=== PATIENT | female | born 1935 | race Hispanic/Latino ===

== ENCOUNTER 2017-02-12 18:58 | Inpatient (IN) | payer MEDICARE, OTHER ==
[~2017-02-12 18:58] MED LIST: ISOVUE-370 76%-LOCM 1 ML ONE
[2017-02-12 22:20] LABS: #Lymphocytes 0.9 thou/uL (1.20-3.40); #Monocytes 0.9 thou/uL (0.11-0.59); #Neutrophils 11.4 thou/uL (1.40-6.50); %Eosinophils 0.1 % (0.0-10.0); %Lymphocytes 6.9 % (21.0-51.0); Hematocrit 30.6 % (36.0-47.0); Mean Platelet Volume 7.7 fL (7.4-10.4); Red Blood Cell (RBC) Count 3.37 mill/uL (4.20-5.40); White Blood Cell (WBC) Count 13.2 thou/uL (4.8-10.8)
[2017-02-12 22:36] LABS: ALT (SGPT) Less than 7 U/L (8-55); AST (SGOT) 13 U/L (5-34); Alkaline Phosphatase 110 U/L (40-150); Anion Gap 16 mmol/L (10-20); BUN (Urea Nitrogen) 16 mg/dL (9.8-20.1); Bilirubin, Total 0.5 mg/dL (0.2-1.2); Calc. Creatinine Clearance 0 mL/min (70-130); Calcium 8.9 mg/dL (7.8-10.44); Carbon Dioxide 23 mmol/L (23-31); Chloride 107 mmol/L (98-107); Estimated GFR-MDRD 30; Globulin 2.8 g/dL (2.4-3.5); Protein, Total 6.6 g/dL (6.0-8.3)
--- NOTE | 2017-02-12 23:14 | CT ---
NONCONTRAST CT OF THE BRAIN: 02/12/17 INDICATION: Right sided facial swelling and head pain. COMPARISON: None. FINDINGS: There is mild generalized cerebral and cerebellar atrophy. There is severe chronic small vessel whit e matter ischemic change. There are remote lacunar infarcts involving the basal ganglia bilaterally. There is remote lacunar infarct involving the left cerebellar hemisphere. Septum pellucidum and thi rd ventricle are midline. There is mucosal thickening with sinus wall sclerosis consistent with sql developer miles sphenoid sinusitis. The remaining paranasal sinuses are clear. The skull is intact. IMPRESSION: No acute intracranial abnormality. POS: NASRIN
--- NOTE | 2017-02-13 00:18 | CT ---
CT OF THE FACE WITH IV CONTRAST: 02/12/17 INDICATION: Right sided facial swelling. FINDINGS: There is soft tissue swelling surrounding the right periorbital region. The [place] lenses were in pl bambi. The post septal orbital fat is preserved. No drainable fluid collection is evident. The mastica tor space bilaterally appear within normal limits. The parotids are normal appearing. Submandibular glands are normal appearing. No pathologically enlarged lymph nodes are evident. The visualized intr acranial contents are unremarkable appearing. There is chronic sinusitis changes involving the right sphenoid sinus. 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 IMPRESSION: No drainable fluid collection. Mild soft tissue swelling surrounding the right periorbital region ma y reflect a mild cellulits. POS: ERON
[2017-02-13] MEDS ORDERED: Hydrocortisone Sod Succ/PF 1,000 MG in Sodium Chloride 0.9% 250 ML 250 ML IVPB SCH (01:45)
[2017-02-13] MEDS ORDERED: HYDROcodone/Acetaminophen 5/325 mg Tablet PO PRN (02:51)
[2017-02-13] MEDS ORDERED: Acetaminophen 325 MG TAB PO PRN (02:51)
[2017-02-13] MEDS ORDERED: Dextrose 50% Abboject 50 ML SYRINGE SLOW IVP PRN (02:53)
[2017-02-13] MEDS ORDERED: Dextrose 5% in Water 1,000 ML IV PRN (02:53)
[2017-02-13] MEDS: Sodium Chloride 0.9% 1,000 ML IV SCH ×2 (04:23→18:23)
[2017-02-13 05:09] VITALS: BMI 32.3
[2017-02-13] MEDS: Ondansetron HCl/PF 4 MG/2 ML Vial IVP PRN ×2 (05:33→19:44)
[2017-02-13 05:53] LABS: #Eosinphils 0.1 thou/uL (0.0-0.7); #Lymphocytes 0.6 thou/uL (1.20-3.40); #Monocytes 0.5 thou/uL (0.11-0.59); #Neutrophils 10.6 thou/uL (1.40-6.50); %Lymphocytes 5.4 % (21.0-51.0); %Monocytes 4.3 % (0.0-10.0); Hematocrit 31.2 % (36.0-47.0); Mean Platelet Volume 9.4 fL (7.4-10.4); Red Blood Cell (RBC) Count 3.36 mill/uL (4.20-5.40); White Blood Cell (WBC) Count 11.8 thou/uL (4.8-10.8)
[2017-02-13 06:13] LABS: Anion Gap 20 mmol/L (10-20); BUN (Urea Nitrogen) 16 mg/dL (9.8-20.1); Calc. Creatinine Clearance 35 mL/min (70-130); Calcium 8.6 mg/dL (7.8-10.44); Carbon Dioxide 15 mmol/L (23-31); Chloride 109 mmol/L (98-107); Estimated GFR-MDRD 37
--- NOTE | 2017-02-13 07:45 | HP ---
DATE OF ADMISSION: 02/13/2017 CHIEF COMPLAINT: Right temporal region headache. HISTORY OF PRESENT ILLNESS: Patient is an 81-year-old female with past medical history of diabetes mellitus type 2, hypertension, hypothyroidism, hyperlipidemia, now came to the hospital because of right temporal headache. Patient started having headache on the right temporal region, constant 10/10. Denies any blurry vision, denies any vision loss. Denies any nausea, denies any vomiting. Denies any weakness. Denies any chest pain. Pain has started this evening. Denies any dizziness. Denies any syncope. Pain worsened, so she came to the ER. PAST MEDICAL HISTORY: As per HPI. PAST SURGICAL HISTORY: Hysterectomy. SOCIAL HISTORY: Denies smoking, denies alcohol, denies any drugs. MEDICATIONS: Reviewed. FAMILY HISTORY: Denies any heart problems. REVIEW OF SYSTEMS: Constitutional: Denies any fever, denies any chills. Eyes : Denies any vision problems. Nose: Denies any rhinorrhea. Ears: Denies any hearing loss. Neck: Denies any neck pain. Cardiovascular: Denies any chest pains or palpitations. Respiratory: Denies any cough, denies sputum production. Gastrointestinal: Denies nausea, vomiting. Genitourinary: Denies dysuria. Integumentary: Denies any rash. Cranial nerve system: Positive for right temporal region headache. Musculoskeletal: Denies any joint deformities. Physical exam: Vitals stable General: Awake, alert, oriented HEENT: Anterior nares patent, pupils reactive to light Neck: No jvd, good range of motion CVS: S1 S2 present, rrr, no murmur, no rubs, no gallop RS: No wheezing, no rhonchi, no accessory muscle usage seen GI: Soft, nttp, no guarding, no rebound tenderness DIVE SUPERVISOR: Alert and oriented, follows commands, strength intact Psych: Mood calm Integumentary: No obvious rash LABORATORY DATA: At the time of H and P performed, white count 13.2, hemoglobin 10.1, platelets count 209. ESR 130. BMP showed sodium 142, potassium 3.5, chloride 107, CO2 of 23, BUN of 16, creatinine 1.64. CRP 4.27, troponin 0.010. ASSESSMENT AND PLAN: The patient is an 81-year-old female. 1. Rule out temporal arteritis. ED nurse practitioner spoke to the ENT for possible biopsy. At this time, we will go ahead and admit the patient to the hospital for close monitoring. We will consult Neurology to evaluate the patient also. We will keep patient n.p.o. for now. ED Nurse Practitioner ordered gram of Solu-Medrol. Patient does not have any vision loss and I will start patient on prednisone 60 mg daily and we will let Neurology see the patient in the morning and make further plans. I did try to reach Neurology, not able to reach at this time. We will call and notify in the morning. 2. Diabetes mellitus, type 2. Monitor blood sugars. We will do insulin sliding scale. 3. Hypertension. Monitor blood pressure. Continue blood pressure medications. 4. Hypothyrodism. Continue home medication. The case was discussed in detail with the patient. VALENTÍN
[2017-02-13] MEDS: predniSONE 20 MG TAB PO SCH (09:22)
[2017-02-13 10:17] LABS: Hemoglobin A1c 5.6 % (4.0-6.0)
[2017-02-13] MEDS ORDERED: METHYLPREDNISOLONE SOD SUCC IVP SCH (12:00)
[2017-02-13] MEDS ORDERED: SODIUM CHLORIDE 0.9% IVP SCH (12:00)
--- NOTE | 2017-02-13 13:22 | PDOC.EVN ---
Event Note - Event Note Event Note: Patient seen and examined, family at bedside, at this point in time pending biopsy of temporal artery, states her headache and symptoms have improved a bit but not completely disappeared. No new issues or complaints, continue current plan of care. Case and plan d/w patient and family at length, they understand and agree with the plan
[2017-02-13] MEDS: Bicitra 30 ML UDCUP PO SCH ×3 (13:31→22:31)
--- NOTE | 2017-02-13 15:22 | CON ---
DATE OF CONSULTATION: 02/13/2017 HISTORY OF PRESENT ILLNESS: Ms. Parish is an 81-year-old female whom I saw at her room this morning. She came in yesterday to [facility] Emergency Department with right-sided temporal region facial burning and headache. She denies any visual changes. Ms. Parish is alert and oriented x3 and is ne urologically intact. She answers my questions appropriately. She moves all of her extremities and is able to ambulate well. CT of the head was completed yesterday that showed no acute intracranial process. CT facial bones s howed no drainable fluid collection, mild soft tissue swelling around the right periorbital region. After labs showed CRP of 4.27 and ESR greater than 130, I was concerned about right temporal arteri tis. Neurology is also consulted on the case. She does complain of headache this morning, but ther e are still no visual changes in her eyes. Her extraocular muscles are intact. Neurosurgery was co nsulted for possible right temporal artery biopsy. PAST MEDICAL HISTORY: The patient has a past medical history of diabetes type 2, hypertension, hypo thyroidism, and hyperlipidemia. PAST SURGICAL HISTORY: Hysterectomy. SOCIAL HISTORY: The patient denies smoking, alcohol or any drug use. MEDICATION: Reviewed. FAMILY HISTORY: Denies any heart problems, otherwise unremarkable. REVIEW OF SYSTEMS: Ten-point review of systems was completed and is otherwise negative unless state d in the above HPI. LABORATORY DATA: Shows white blood cell count of 11.8, hemoglobin is 10.3, hematocrit is 31.2. ESR greater than 130. On chemistry exam, her sodium was 140, chloride 109, carbon dioxide is 15, creat inine is 1.38, her glucose this morning is 125 and her CRP is 4.27. ASSESSMENT: Ms. Parish is an 81-year-old female who presents with right-sided temporal arteritis. She has been placed on high dose of Solu-Medrol. Hospitalist team is following closely and managing her care. PLAN: I have talked to Dr. Diehl about a possible right-sided temporal artery biopsy. We would be able to do this earliest on Wednesday since it is a nonemergent case. He is aware that the patient has reviewed my assessment and plan. If there are any further questions, please feel free to conta ct Neurosurgery.
--- NOTE | 2017-02-13 15:34 | CON ---
DATE OF CONSULTATION: 02/13/2017 IMPRESSION: Possible temporal arteritis on the right. PLAN: 1. Solu-Medrol 125 mg per day today. 2. Discharge on prednisone 60 mg per day if she responds to the steroids. 3. ENT follow up next week for biopsy. HISTORY OF PRESENT ILLNESS: Ms. Parish is an 81-year-old female with a past history of hype rtension, diabetes, and hyperlipidemia, who presents with a severe right-sided headache and some shawn sea and vomiting. She reports some tenderness on the right side of the head as well. She denies an y transient vision loss. She had a sed rate of 130. Her workup otherwise has been unremarkable. S he has never had anything like this before. PAST MEDICAL HISTORY: As listed above including bladder cancer. ALLERGIES: None reported. SOCIAL HISTORY: No tobacco or alcohol use. FAMILY HISTORY: Noncontributory. REVIEW OF SYSTEMS: Otherwise, negative for any slurred speech, difficulty swallowing, chest pain, o r shortness of breath. PHYSICAL EXAMINATION: GENERAL: She is petite, somewhat overweight, elderly lady sitting up, in mild distress. HEENT: Pupils are equal. Conjunctivae are clear. Movements are intact. There is some temporal te nderness present on the right side. Oropharynx clear. NECK: Supple. EXTREMITIES: No cyanosis. NEUROLOGIC EXAM: She is alert and appropriate. Her speech is fluent and clear. Her exam is nonfoc al. No abnormal movements were seen. She can walk independently. SUMMARY: This is an 81-year-old woman with a sed rate of 130 and a right-sided headache with tempor al tenderness suggesting the possibility of temporal arteritis. Hopefully, she will respond to ster oids and her workup can be completed as an outpatient.
[2017-02-13] MEDS: HumaLOG 300 UNITS/3 ML VIAL SC PRN (22:31)
--- NOTE | 2017-02-14 01:53 | PDOC.PN ---
- Subjective Encounter Start Date: 02/14/17 Encounter Start Time: 01:50 ctsp due to confusion and abdominal pain pt c/o some abdominal pain - Objective Vital Signs & Weight: Vital Signs (12 hours) Temp Pulse Resp BP BP Pulse Ox 02/13/17 20:00 97.9 F 81 20 145/65 H 93 L 02/13/17 16:00 97.2 F L 80 18 156/76 H 95 Weight Admit Weight 149 lb 7 oz Weight 149 lb 7 oz I&O: 02/12/17 02/13/17 02/14/17 06:59 06:59 06:59 Intake Total 120 Balance 120 Result Diagrams: 02/13/17 05:26 02/13/17 05:26 Additional Labs: Accuchecks 02/14/17 02/13/17 02/13/17 01:07 20:06 17:19 POC Glucose 249 H 303 H 294 H 02/13/17 02/13/17 12:38 06:02 POC Glucose 197 H 125 H Phys Exam - Physical Examination Constitutional: NAD Neck: no JVD Respiratory: no wheezing, no rales, no rhonchi Cardiovascular: RRR, no significant murmur, no rub distended, mild tender to palpate, no gaurding, no rebound tenderness Neurological: non-focal sleeping, but arousable, follows commands, oriented to person Dx/Plan - Plan * . pt is 81 yrs old female 1. Abdominal pain 2. Encephalopathy 3. R/O temporal arteritis plan: will chekc ct abdomen and pelvis to r/o abdominal apthology will check ct head to r/o bleed we will monitor closely Check am labs and ammonia level now d/w pt & RN
[2017-02-14 02:41] LABS: #Lymphocytes 0.8 thou/uL (1.20-3.40); #Monocytes 1.1 thou/uL (0.11-0.59); #Neutrophils 14.4 thou/uL (1.40-6.50); %Eosinophils 0.1 % (0.0-10.0); %Lymphocytes 4.9 % (21.0-51.0); %Monocytes 6.6 % (0.0-10.0); Mean Platelet Volume 8.2 fL (7.4-10.4); Red Blood Cell (RBC) Count 3.19 mill/uL (4.20-5.40); White Blood Cell (WBC) Count 16.3 thou/uL (4.8-10.8)
[2017-02-14 02:57] LABS: Anion Gap 16 mmol/L (10-20); BUN (Urea Nitrogen) 29 mg/dL (9.8-20.1); Calc. Creatinine Clearance 27 mL/min (70-130); Calcium 8.1 mg/dL (7.8-10.44); Carbon Dioxide 23 mmol/L (23-31); Chloride 105 mmol/L (98-107); Estimated GFR-MDRD 27; Magnesium 1.2 mg/dL (1.6-2.6)
[2017-02-14] MEDS: Sodium Chloride 0.9% 1,000 ML IV SCH ×3 (05:40→21:18)
[2017-02-14] MEDS ORDERED: Diabetic Tussin 200 MG/10 ML UDCUP PO PRN (07:44)
[2017-02-14] MEDS ORDERED: Ondansetron ODT 4 MG TAB PO PRN (07:44)
[2017-02-14] MEDS ORDERED: Senokot 8.6 MG TAB PO PRN (07:44)
[2017-02-14] MEDS ORDERED: Sodium Chloride 0.65% Nasal 44 ML BOT EA NARE PRN (07:44)
[2017-02-14] MEDS ORDERED: Eucerin (Mineral Oil/Petrolatum,White) 30 gm Jar TOP PRN (07:44)
[2017-02-14] MEDS ORDERED: Milk Of Magnesia 30 ML UDCUP PO PRN (07:44)
[2017-02-14] MEDS ORDERED: Artificial Tears 18 DROP/0.9 ML EA EYE PRN (07:44)
[2017-02-14] MEDS ORDERED: Loperamide HCl 2 MG CAP PO PRN (07:44)
[2017-02-14] MEDS ORDERED: Mag-Al 1200 mg/1200 mg/30 ML UDCUP PO PRN (07:44)
[2017-02-14] MEDS ORDERED: Levothyroxine Sodium 50 MCG TAB PO SCH (08:30)
--- NOTE | 2017-02-14 09:15 | PRG ---
DATE OF SERVICE: 02/14/2017 I personally interviewed and examined the patient, reviewed records and agree with documentation of Farhad Raines PA-C, dated 02/13/2017. SUBJECTIVE: Briefly, Ms. Jaimee Parish was admitted to [facility] from rather sharp lateralizing head pain and has some concern for temporal arteritis. However, I saw Ms. Jaimee Parish this morning. She denies any head pain. I palpated her right and left temporal arteries quite aggressively and she does not wince. She says there is no pain there today and it is completely gone. It wouuld be unusual, in my experience to see temporal arteritis pain donato so quickly. She may have had an Indomethacin-sensitive headache syndrome or migraine. We are going to hold off on temporal artery biopsy from now. If the medical team would like us to reconsider, they can reconsult. We typically do not do the temporal artery biopsy as I think one of the local certified physical therapist assistant is interested in this disease process and performs those biopsies from time to time. VALENTÍN
[2017-02-14] MEDS: predniSONE 20 MG TAB PO SCH (09:31)
[2017-02-14] MEDS: Bicitra 30 ML UDCUP PO SCH ×4 (09:32→21:22)
[2017-02-14] MEDS ORDERED: Magnesium Sulfate 4 GM in Sodium Chloride 0.9% 250 ML 250 ML IVPB SCH (11:00)
--- NOTE | 2017-02-14 11:00 | PDOC.PN ---
- Subjective Encounter Start Date: 02/14/17 Encounter Start Time: 10:40 -: old records requested/rev pt's headache improved, last night she had abdominal pain and altered mental status, so CT abdomen and brain was done - Objective MAR Reviewed: Yes Vital Signs & Weight: Vital Signs (12 hours) Temp Pulse Resp BP BP BP Pulse Ox 02/14/17 09:32 81 153/79 H 02/14/17 08:00 97.7 F 81 18 153/79 H 94 L 02/14/17 04:52 97.9 F 66 20 107/68 94 L Weight Admit Weight 149 lb 7 oz Weight 149 lb 7 oz I&O: 02/13/17 02/14/17 02/15/17 06:59 06:59 06:59 Intake Total 120 Balance 120 Result Diagrams: 02/14/17 02:25 02/14/17 02:25 Additional Labs: Accuchecks 02/14/17 02/14/17 02/13/17 04:57 01:07 20:06 POC Glucose 227 H 249 H 303 H 02/13/17 02/13/17 17:19 12:38 POC Glucose 294 H 197 H Radiology Reviewed by me: Yes Phys Exam - Physical Examination Constitutional: NAD HEENT: PERRLA, moist MMs, sclera anicteric Neck: no JVD, supple Respiratory: no wheezing, no rales, no rhonchi Cardiovascular: RRR, no significant murmur, no rub Gastrointestinal: soft, non-tender, no distention, positive bowel sounds Musculoskeletal: no edema, pulses present Neurological: non-focal, normal sensation, moves all 4 limbs Psychiatric: normal affect Skin: no rash, normal turgor Dx/Plan (1) Hypokalemia Code(s): E87.6 - HYPOKALEMIA Status: Acute (2) Hypomagnesemia Code(s): E83.42 - HYPOMAGNESEMIA Status: Acute (3) Acute kidney failure Status: Acute (4) Encephalopathy acute Code(s): G93.40 - ENCEPHALOPATHY, UNSPECIFIED Status: Acute (5) Anemia, normocytic normochromic Code(s): D64.9 - ANEMIA, UNSPECIFIED Status: Chronic (6) Dementia Code(s): F03.90 - UNSPECIFIED DEMENTIA WITHOUT BEHAVIORAL DISTURBANCE Status: Chronic (7) Diabetes type 2, controlled Code(s): E11.9 - TYPE 2 DIABETES MELLITUS WITHOUT COMPLICATIONS Status: Chronic (8) Dyslipidemia Code(s): E78.5 - HYPERLIPIDEMIA, UNSPECIFIED Status: Chronic (9) GERD (gastroesophageal reflux disease) Code(s): K21.9 - GASTRO-ESOPHAGEAL REFLUX DISEASE WITHOUT ESOPHAGITIS Status: Chronic (10) Hypertension Code(s): I10 - ESSENTIAL (PRIMARY) HYPERTENSION Status: Chronic (11) Hypothyroidism Code(s): E03.9 - HYPOTHYROIDISM, UNSPECIFIED Status: Chronic (12) Obesity (BMI 30.0-34.9) Code(s): E66.9 - OBESITY, UNSPECIFIED Status: Chronic (13) Temporal arteritis Code(s): M31.6 - OTHER GIANT CELL ARTERITIS Status: Suspected - Plan cont current plan of care * continue oral prednisone for suspected temporal arteritis * will consult ENT/CT surgeon to do this biopsy tomorrow * today will replace potassium and magnesium * continue IVF * repeat labs tomorrow * medication reviewed as below * symptomatic treatment.. Review of Systems - Review of Systems Constitutional: negative: Fever, Chills, Sweats, Weakness, Malaise, Other Respiratory: negative: Cough, Dry, Shortness of Breath, Hemoptysis, SOB with Excertion, Pleuritic Pain, Sputum, Wheezing Cardiovascular: negative: Chest Pain, Palpitations, Orthopnea, Paroxysmal Noc. Dyspnea, Edema, Light Headedness, Other Gastrointestinal: negative: Nausea, Vomiting, Abdominal Pain, Diarrhea, Constipation, Melena, Hematochezia, Other Genitourinary: negative: Dysuria, Frequency, Incontinence, Hematuria, Retention , Other Musculoskeletal: negative: Neck Pain, Shoulder Pain, Arm Pain, Back Pain, Hand Pain, Leg Pain, Foot Pain, Other - Medications/Allergies Allergies/Adverse Reactions: Allergies Allergy/AdvReac Type Severity Reaction Status Date / Time No Known Allergies Allergy Verified 02/13/17 04:35 Medications: Current Medications Acetaminophen (Tylenol) 650 mg PO Q4H PRN PRN Reason: Headache/Fever or Pain Hydrocodone Bitart/Acetaminophen ([place] 5/325) 1 tab PO Q4H PRN PRN Reason: Moderate Pain (4-6) Al Hydroxide/Mg Hydroxide (Maalox) 15 ml PO Q4H PRN PRN Reason: Heartburn or Indigestion Amlodipine Besylate (Norvasc) 5 mg PO DAILY [facility] Last Admin: 02/14/17 09:32 Dose: 5 mg Artificial Tears (Tears Naturale) 0 drop EA EYE PRN PRN PRN Reason: Dry Eyes Atorvastatin Calcium (Lipitor) 40 mg PO HS [facility] Cholecalciferol (Vitamin D3) 1,000 units PO DAILY [facility] Last Admin: 02/14/17 09:31 Dose: 1,000 units Citric Acid/Sodium Citrate (Bicitra) 30 ml PO [facility] Last Admin: 02/14/17 09:32 Dose: 30 ml Dextrose/Water (Dextrose 50%) 25 gm SLOW IVP PRN PRN PRN Reason: Hypoglycemia Donepezil HCl (Aricept) 5 mg PO HS [facility] Glucagon (Glucagon) 1 mg IM PRN PRN PRN Reason: Hypoglycemia Guaifenesin (Robitussin Sf) 200 mg PO Q4H PRN PRN Reason: Cough Hydralazine HCl (Apresoline) 10 mg SLOW IVP Q4H PRN PRN Reason: Systolic BP > 180 Dextrose/Water (D5w) 1,000 mls @ 0 mls/hr IV .Q0M PRN; As Directed PRN Reason: Hypoglycemia Sodium Chloride (Normal Saline 0.9%) 1,000 mls @ 75 mls/hr IV .[id number] [facility] Last Admin: 02/14/17 09:33 Dose: 1,000 mls Insulin Human Lispro (Humalog) 0 units SC .MODERATE SLIDING SC PRN PRN Reason: Moderate Correctional Scale Last Admin: 02/13/17 22:31 Dose: 0.8 unit Levothyroxine Sodium (Synthroid) 50 mcg PO 0600 [facility] Loperamide HCl (Imodium) 2 mg PO PRN PRN PRN Reason: Diarrhea/Loose Stools Magnesium Hydroxide (Milk Of Magnesium) 30 ml PO DAILYPRN PRN PRN Reason: Constipation Mineral Oil/White Petrolatum (Eucerin Cream) 0 gm TOP BIDPRN PRN PRN Reason: Dry Skin Mirabegron (Myrbetriq Er) 25 mg PO DAILY [facility] Last Admin: 02/14/17 09:30 Dose: 25 mg Ondansetron HCl (Zofran) 4 mg IVP Q6H PRN PRN Reason: Nausea/Vomiting Last Admin: 02/13/17 19:44 Dose: 4 mg Ondansetron HCl (Zofran Odt) 4 mg PO Q6H PRN PRN Reason: Nausea/Vomiting Prednisone (Prednisone) 60 mg PO QAM-WM [facility] Last Admin: 02/14/17 09:31 Dose: 60 mg Senna (Senokot) 2 tab PO HSPRN PRN PRN Reason: Constipation Sodium Chloride (Flush - Normal Saline) 10 ml IVF Q12HR [facility] Last Admin: 02/14/17 09:33 Dose: Not Given Sodium Chloride (Flush - Normal Saline) 10 ml IVF PRN PRN PRN Reason: Saline Flush Sodium Chloride ([place] Nasal [place] 0.65%) 0 ml EA NARE QIDPRN PRN PRN Reason: Nasal Congestion
[2017-02-14] MEDS ORDERED: Potassium Chloride 40 MEQ in Sodium Chloride 0.9% 500 ML IVPB SCH ×4 (11:15)
[2017-02-14] MEDS: HumaLOG 300 UNITS/3 ML VIAL SC PRN ×2 (12:36→17:12)
--- NOTE | 2017-02-14 15:44 | CT ---
PRELIMINARY REPORT/[facility]/EMERGENCY AFTER HOURS PROCEDURE: EXAM: CT Head Without Intravenous Contrast CLINICAL HISTORY: 81 years old, female; Pain and signs and symptoms; Weakness, facial; Headache; Headache not specifie d; Patient HX: Pt C/O DOWNS and right sided facial numbness TECHNIQUE: Axial computed tomography images of the head/brain without intravenous contrast. COMPARISON: No relevant prior studies available. FINDINGS: Brain: There is no evidence for acute stroke or bleed. There is global and diffuse parenchymal volume loss. There are scattered foci of decreased attenuation in the periventricular and subcortical white matte r, nonspecific, but most consistent with chronic small vessel ischemic changes in patient of this ag e. There are remote left basal ganglion lacunar infracts. Ventricles / cisterns / extra-axial spaces: There is no hydrocephalus, midline shift, or acute extra-axial fluid collection. There is no sulcal effacement. Sinuses: No findings of acute sinusitis or suspicious sinus mass. Bone: No acute fracture or displacement. Impression: Chronic changes without evidence for acute, intracranial pathology. Thank you for allowing us to participate in the care of your patient. Dictated and Authenticated by: Edgar De Santiago MD 02/14/2017 2:33 AM Central Time ([place] \T\ [place]) FINAL REPORT CT BRAIN: HISTORY: Mental status change. Complaining of headache and right facial numbness. FINDINGS: Final report. Noncontrast-enhanced CT images of the brain were obtained from the base of the skull to the vertex. Brain and bone windows are obtained. Comparison is made to previous exam CT from 2 days earlier. No significant interval changes seen since the previous CT from 2 days earlier. No acute abnormalit ies seen. Deep white matter ischemic changes seen. I concur with the dictation from [facility]. POS: [facility]
--- NOTE | 2017-02-14 15:47 | CT ---
PRELIMINARY REPORT/[facility]/EMERGENCY AFTER HOURS PROCEDURE: EXAM: CT Abdomen and Pelvis Without Intravenous Contrast CLINICAL HISTORY: 81 years old, female; Pain; Abdominal pain; Localized; Lower; Patient HX: Pt C/O lower abdominal simeon n, pt also C/O nausea and vomiting. Pt had a scan with contrast 2 days ago. TECHNIQUE: Axial computed tomography images of the abdomen and pelvis without intravenous contrast. Coronal reformatted images were created and reviewed. COMPARISON: No relevant prior studies available. FINDINGS: Lower thorax: Trace left effusion. Chronic fibrotic changes. ABDOMEN: Liver: No acute findings. Gallbladder and bile ducts: Gallbladder has been removed. No ductal dilation. Pancreas: No acute findings. No ductal dilation. Spleen: No acute findings. No splenomegaly. Adrenals: 14 mm low density left adrenal nodule consistent with adenoma. Kidneys and ureters: No acute findings. No obstructing stones. No hydronephrosis. 4.8 cm simple left renal cyst. IV contrast from prior study is noted in the right ureter and bladder. Stomach and bowel: There is colonic diverticulosis without CT evidence for acute diverticulitis. No obstruction. No mucosal thickening. Appendix: No findings to suggest acute appendicitis. PELVIS: Bladder: Opacified with contrast. Reproductive: Uterus has been removed. ABDOMEN and PELVIS: Intraperitoneal space: No acute findings. No free air. No significant fluid collection. Bones/joints: Chronic degenerative spinal changes without acute fracture or dislocation. Soft tissues: No acute findings. Vasculature: There are atheromatous changes of the abdominal aorta without aneurysm. Lymph nodes: No acute findings. No enlarged lymph nodes. IMPRESSION: No free air or bowel obstruction. No abscess. Diverticulosis without diverticulitis. Left adrenal adenoma. Trace left pleural effusion. Thank you for allowing us to participate in the care of your patient. Dictated and Authenticated by: Edgar De Santiago MD 02/14/2017 2:42 AM Central Time ([place] \T\ [place]) FINAL REPORT NONCONTRAST ENHANCED CT IMAGES ABDOMEN AND PELVIS Final report. Preliminary exam was performed by [facility]. Extensive radiopaque contrast i s seen in the urinary bladder. The patient is complaining of lower abdominal pain and nausea and vo miting. The patient had a scan 2 days ago at an outside institution. Noncontrast-enhanced CT images abdomen and pelvis demonstrate no evidence of renal calculi. Cortica l cyst is seen in the left kidney. No other significant abnormality is seen. There is some fullnes s in the left adrenal gland. Without oral and IV contrast, there is significant decreased sensitivity for detection of pathology. Repeat exam with oral and IV contrast may be of use if clinically indicated. Also obtain results from patient's previous CT abdomen and pelvis where hopefully IV contrast was given. I concur with the dictation from [facility]. POS: [facility]
[2017-02-14 15:54] LABS: Bilirubin Negative (Negative); Blood, Urine Small (Negative); Glucose, Urine (Dipstick) 500 mg/dL (Negative); Ketone, Urine Negative (Negative); Nitrite Negative (Negative); Protein, Urine (Dipstick) 30 mg/dL (Neg-Trace)
[2017-02-14 15:58] LABS: Bacteria/HPF 4+ HPF (None Seen); Hyaline Casts/LPF 4-6 HYALINE CAST LPF (0-3 Hyaline); Squamous Epithelial 0-3 HPF (0-3)
[2017-02-14 16:14] LABS: RBC/HPF 0-3 HPF (0-3)
[2017-02-14] MEDS: Donepezil HCl 5 MG TAB PO SCH (21:18)
[2017-02-14] MEDS: Atorvastatin Calcium 40 MG TAB PO SCH (21:18)
--- NOTE | 2017-02-14 23:04 | CON ---
DATE OF CONSULTATION: 02/14/2017 HISTORY OF PRESENT ILLNESS: Ms. Parish is an 81-year-old woman who presented through the [facility] with right-sided temporal headache. She had a sed rate of 130. She had a tender right te mporal area overlying the temporal artery. I have been asked to do a temporal artery biopsy. The patient has been treated with steroids since admission and has improved significantly. Her tend erness is almost completely gone. Her headache is completely gone. She has been seen by Dr. Zeina avalos in Neurology and also Dr. Diehl. Both of them feel that she clinically has giant cell arterit is and has improved with steroid treatment. The patient gives a history of having near experience around the time of the bladder biopsy a couple years ago. She spent time in the Intensive Care Unit and also was on the ventilator after a short general anesthetic. PAST MEDICAL HISTORY: 1. Type 2 diabetes mellitus. 2. Hypertension. 3. Hyperlipidemia. 4. Hypothyroidism. PAST SURGICAL HISTORY: Hysterectomy. CURRENT MEDICATIONS: Noted. ALLERGIES: None. PHYSICAL EXAMINATION: GENERAL: This is a well-developed, well-nourished woman resting comfortably in bed. VITAL SIGNS: Her temperature is 97.7, pulse is 81, blood pressure is 153/79. HEENT: She has some tenderness with deep palpation over the right temporal artery. She has a bound ing temporal artery pulse. NECK: There are no carotid bruits. She has no cervical adenopathy. LUNGS: Chest is clear bilaterally. HEART: Rhythm is regular. ABDOMEN: Soft and nontender. LABORATORY NOTE: She has a sed rate of greater than 130. ASSESSMENT AND PLAN: Clinically diagnosed giant cell arteritis. She has significant risk due to he r anesthetic history and I do not feel that temporal artery biopsy is going to change the treatment regimen that she is on. I would treat her as if she has giant cell arteritis. If we need to see he r in the future for biopsy, we could certainly readdress this, but I do not feel that currently it i s necessary for her treatment.
[2017-02-15 04:42] LABS: #Lymphocytes 0.7 thou/uL (1.20-3.40); #Monocytes 1.2 thou/uL (0.11-0.59); #Neutrophils 17.9 thou/uL (1.40-6.50); %Eosinophils 0.2 % (0.0-10.0); %Lymphocytes 3.5 % (21.0-51.0); Hematocrit 26.2 % (36.0-47.0); Mean Platelet Volume 8.7 fL (7.4-10.4); Red Blood Cell (RBC) Count 2.84 mill/uL (4.20-5.40); White Blood Cell (WBC) Count 19.8 thou/uL (4.8-10.8)
[2017-02-15] MEDS: Levothyroxine Sodium 50 MCG TAB PO SCH (05:17)
[2017-02-15] MEDS: Sodium Chloride 0.9% 1,000 ML IV SCH ×2 (05:19→08:05)
[2017-02-15 05:20] LABS: Anion Gap 15 mmol/L (10-20); BUN (Urea Nitrogen) 33 mg/dL (9.8-20.1); Calc. Creatinine Clearance 28 mL/min (70-130); Calcium 7.5 mg/dL (7.8-10.44); Carbon Dioxide 21 mmol/L (23-31); Chloride 110 mmol/L (98-107); Estimated GFR-MDRD 29; Magnesium 2.6 mg/dL (1.6-2.6)
[2017-02-15] MEDS: HumaLOG 300 UNITS/3 ML VIAL SC PRN ×2 (05:23→12:45)
[2017-02-15 05:27] LABS: Phosphorus 1.4 mg/dL (2.3-4.7)
--- NOTE | 2017-02-15 07:47 | RAD ---
SINGLE VIEW CHEST: Date: 02/15/17 COMPARISON: None. HISTORY: Shortness of breath and wheezing. FINDINGS: Single view of the chest shows a normal sized cardiomediastinal silhouette. There is no evidence of consolidation, mass, or pleural effusion. There is a remote left clavicle fracture. IMPRESSION: No evidence of acute cardiopulmonary disease. POS: [facility]
[2017-02-15] MEDS: predniSONE 20 MG TAB PO SCH (07:54)
[2017-02-15] MEDS: Bicitra 30 ML UDCUP PO SCH ×4 (07:55→20:22)
[2017-02-15] MEDS ORDERED: Furosemide 20 MG/2 ML VIAL SLOW IVP SCH (09:15)
--- NOTE | 2017-02-15 11:20 | PDOC.PN ---
- Subjective Encounter Start Date: 02/15/17 Encounter Start Time: 09:35 Patient seen and examined. No new complaints. No overnight events - Objective MAR Reviewed: Yes Vital Signs & Weight: Vital Signs (12 hours) Temp Pulse Resp BP BP BP Pulse Ox 02/15/17 09:42 96 02/15/17 09:28 97.6 F 105 H 18 146/92 H 94 L 02/15/17 09:18 77 211/86 H 02/15/17 08:50 98 F 123 H 19 211/86 H 91 L 02/15/17 08:00 98 F 77 17 99 02/15/17 07:54 77 161/67 H 02/15/17 07:48 98.0 F 77 16 161/67 H 99 02/15/17 04:00 98.1 F 85 20 172/69 H 97 Weight Admit Weight 149 lb 7 oz Weight 149 lb 7 oz I&O: 02/14/17 02/15/17 02/16/17 06:59 06:59 06:59 Intake Total 120 1455 240 Output Total 100 Balance 120 1355 240 Result Diagrams: 02/15/17 03:45 02/15/17 03:45 Additional Labs: Accuchecks 02/15/17 02/14/17 02/14/17 04:50 20:25 16:05 POC Glucose 187 H 261 H 201 H 02/14/17 12:26 POC Glucose 339 H Phys Exam - Physical Examination Constitutional: NAD HEENT: PERRLA, moist MMs, sclera anicteric Neck: no JVD, supple Respiratory: no wheezing, no rales Cardiovascular: RRR, no significant murmur, no rub Gastrointestinal: soft, non-tender, no distention, positive bowel sounds Musculoskeletal: no edema, pulses present Neurological: non-focal, normal sensation Psychiatric: normal affect, A&O x 3 Skin: no rash, normal turgor Dx/Plan (1) Hypokalemia Code(s): E87.6 - HYPOKALEMIA Status: Acute (2) Hypomagnesemia Code(s): E83.42 - HYPOMAGNESEMIA Status: Acute (3) Acute kidney failure Status: Acute (4) Encephalopathy acute Code(s): G93.40 - ENCEPHALOPATHY, UNSPECIFIED Status: Acute (5) Anemia, normocytic normochromic Code(s): D64.9 - ANEMIA, UNSPECIFIED Status: Chronic (6) Dementia Code(s): F03.90 - UNSPECIFIED DEMENTIA WITHOUT BEHAVIORAL DISTURBANCE Status: Chronic (7) Diabetes type 2, controlled Code(s): E11.9 - TYPE 2 DIABETES MELLITUS WITHOUT COMPLICATIONS Status: Chronic (8) Dyslipidemia Code(s): E78.5 - HYPERLIPIDEMIA, UNSPECIFIED Status: Chronic (9) GERD (gastroesophageal reflux disease) Code(s): K21.9 - GASTRO-ESOPHAGEAL REFLUX DISEASE WITHOUT ESOPHAGITIS Status: Chronic (10) Hypertension Code(s): I10 - ESSENTIAL (PRIMARY) HYPERTENSION Status: Chronic (11) Hypothyroidism Code(s): E03.9 - HYPOTHYROIDISM, UNSPECIFIED Status: Chronic (12) Obesity (BMI 30.0-34.9) Code(s): E66.9 - OBESITY, UNSPECIFIED Status: Chronic (13) Temporal arteritis Code(s): M31.6 - OTHER GIANT CELL ARTERITIS Status: Suspected - Plan cont current plan of care * will replace potassium phosphate * she had fall but no injury based on exam * she was hypertensive after fall but after that BP improved * will give lasix * DC IVF * will continue PT/OT * she is unsteady on her feet, will continue PT/OT * she prefer to go home but she will benefit from one more day * medication reviewed as below * symptomatic treatment. * increase amlodipine 10 mg Review of Systems - Review of Systems ENT: negative: Ear Pain, Ear Discharge, Nose Pain, Nose Discharge, Nose Congestion, Mouth Pain, Mouth Swelling, Throat Pain, Throat Swelling, Other Respiratory: negative: Cough, Dry, Shortness of Breath, Hemoptysis, SOB with Excertion, Pleuritic Pain, Sputum, Wheezing Cardiovascular: negative: Chest Pain, Palpitations, Orthopnea, Paroxysmal Noc. Dyspnea, Edema, Light Headedness, Other Gastrointestinal: negative: Nausea, Vomiting, Abdominal Pain, Diarrhea, Constipation, Melena, Hematochezia, Other Genitourinary: negative: Dysuria, Frequency, Incontinence, Hematuria, Retention , Other Musculoskeletal: negative: Neck Pain, Shoulder Pain, Arm Pain, Back Pain, Hand Pain, Leg Pain, Foot Pain, Other - Medications/Allergies Allergies/Adverse Reactions: Allergies Allergy/AdvReac Type Severity Reaction Status Date / Time No Known Allergies Allergy Verified 02/13/17 04:35 Medications: Current Medications Acetaminophen (Tylenol) 650 mg PO Q4H PRN PRN Reason: Headache/Fever or Pain Hydrocodone Bitart/Acetaminophen ([place] 5/325) 1 tab PO Q4H PRN PRN Reason: Moderate Pain (4-6) Al Hydroxide/Mg Hydroxide (Maalox) 15 ml PO Q4H PRN PRN Reason: Heartburn or Indigestion Albuterol/Ipratropium (Duoneb) 3 ml NEB Q4H PRN PRN Reason: SOB &/or Wheezing Amlodipine Besylate (Norvasc) 5 mg PO DAILY [facility] Last Admin: 02/15/17 07:54 Dose: 5 mg Artificial Tears (Tears Naturale) 0 drop EA EYE PRN PRN PRN Reason: Dry Eyes Atorvastatin Calcium (Lipitor) 40 mg PO [facility] Last Admin: 02/14/17 21:18 Dose: 40 mg Cholecalciferol (Vitamin D3) 1,000 units PO DAILY [facility] Last Admin: 02/15/17 07:53 Dose: 1,000 units Citric Acid/Sodium Citrate (Bicitra) 30 ml PO [facility] Last Admin: 02/15/17 07:55 Dose: 30 ml Dextrose/Water (Dextrose 50%) 25 gm SLOW IVP PRN PRN PRN Reason: Hypoglycemia Donepezil HCl (Aricept) 5 mg PO [facility] Last Admin: 02/14/17 21:18 Dose: 5 mg Glucagon (Glucagon) 1 mg IM PRN PRN PRN Reason: Hypoglycemia Guaifenesin (Robitussin Sf) 200 mg PO Q4H PRN PRN Reason: Cough Hydralazine HCl (Apresoline) 10 mg SLOW IVP Q4H PRN PRN Reason: Systolic BP > 180 Last Admin: 02/15/17 09:18 Dose: 10 mg Dextrose/Water (D5w) 1,000 mls @ 0 mls/hr IV .Q0M PRN; As Directed PRN Reason: Hypoglycemia Insulin Human Lispro (Humalog) 0 units SC .MODERATE SLIDING SC PRN PRN Reason: Moderate Correctional Scale Last Admin: 02/15/17 05:23 Dose: 2 unit Levothyroxine Sodium (Synthroid) 50 mcg PO 0600 [facility] Last Admin: 02/15/17 05:17 Dose: 50 mcg Loperamide HCl (Imodium) 2 mg PO PRN PRN PRN Reason: Diarrhea/Loose Stools Magnesium Hydroxide (Milk Of Magnesium) 30 ml PO DAILYPRN PRN PRN Reason: Constipation Mineral Oil/White Petrolatum (Eucerin Cream) 0 gm TOP BIDPRN PRN PRN Reason: Dry Skin Mirabegron (Myrbetriq Er) 25 mg PO DAILY [facility] Last Admin: 02/15/17 07:55 Dose: 25 mg Miscellaneous Medication (Phos-Nak) 2 pkt PO TID [facility] Stop: 02/16/17 21:01 Last Admin: 02/15/17 07:54 Dose: 2 pkt Ondansetron HCl (Zofran) 4 mg IVP Q6H PRN PRN Reason: Nausea/Vomiting Last Admin: 02/13/17 19:44 Dose: 4 mg Ondansetron HCl (Zofran Odt) 4 mg PO Q6H PRN PRN Reason: Nausea/Vomiting Prednisone (Prednisone) 40 mg PO QAM [facility] Last Admin: 02/15/17 07:54 Dose: 40 mg Senna (Senokot) 2 tab PO HSPRN PRN PRN Reason: Constipation Sodium Chloride (Flush - Normal Saline) 10 ml IVF Q12HR [facility] Last Admin: 02/15/17 07:56 Dose: Not Given Sodium Chloride (Flush - Normal Saline) 10 ml IVF PRN PRN PRN Reason: Saline Flush Sodium Chloride ([place] Nasal [place] 0.65%) 0 ml EA NARE QIDPRN PRN PRN Reason: Nasal Congestion
[2017-02-15] MEDS ORDERED: Potassium Phosphate 30 MMOL in Sodium Chloride 0.9% 500 ML IVPB SCH (12:00)
[2017-02-15] MEDS: Donepezil HCl 5 MG TAB PO SCH (20:22)
[2017-02-15] MEDS: Atorvastatin Calcium 40 MG TAB PO SCH (20:22)
[2017-02-16] MEDS: Levothyroxine Sodium 50 MCG TAB PO SCH (05:46)
[2017-02-16 07:28] VITALS: TEMP 98.4
[2017-02-16] MEDS: predniSONE 20 MG TAB PO SCH (07:32)
[2017-02-16] MEDS: Bicitra 30 ML UDCUP PO SCH (07:33)
[2017-02-16 09:38] VITALS: BP 150/77
[2017-02-16 10:05] LABS: #Lymphocytes 0.7 thou/uL (1.20-3.40); #Monocytes 0.9 thou/uL (0.11-0.59); #Neutrophils 13.7 thou/uL (1.40-6.50); %Eosinophils 0.1 % (0.0-10.0); %Lymphocytes 4.4 % (21.0-51.0); %Monocytes 5.6 % (0.0-10.0); Hematocrit 30.5 % (36.0-47.0); Mean Platelet Volume 7.9 fL (7.4-10.4); Red Blood Cell (RBC) Count 3.34 mill/uL (4.20-5.40); White Blood Cell (WBC) Count 15.3 thou/uL (4.8-10.8)
[2017-02-16 10:33] LABS: Anion Gap 13 mmol/L (10-20); BUN (Urea Nitrogen) 21 mg/dL (9.8-20.1); Calc. Creatinine Clearance 36 mL/min (70-130); Calcium 7.6 mg/dL (7.8-10.44); Carbon Dioxide 29 mmol/L (23-31); Chloride 105 mmol/L (98-107); Estimated GFR-MDRD 38
--- NOTE | 2017-02-16 14:57 | PDOC.PN ---
- Subjective Encounter Start Date: 02/16/17 Encounter Start Time: 07:50 Subjective: feels good, wants to go home -: no weakness, headache or vision issues now - Objective MAR Reviewed: Yes Vital Signs & Weight: Vital Signs (12 hours) Temp Pulse Resp BP BP BP Pulse Ox 02/16/17 09:37 98.4 F 95 18 150/77 H 95 02/16/17 08:00 98.4 F 85 17 93 L 02/16/17 07:32 85 174/78 H 02/16/17 07:27 98.4 F 85 17 174/78 H 93 L Weight Admit Weight 149 lb 7 oz Weight 149 lb 7 oz I&O: 02/15/17 02/16/17 02/17/17 06:59 06:59 06:59 Intake Total 1455 2760 Output Total 100 Balance 1355 2760 Result Diagrams: 02/16/17 09:55 02/16/17 09:55 Additional Labs: Accuchecks 02/16/17 02/16/17 02/15/17 11:30 05:55 20:25 POC Glucose 180 H 129 H 155 H 02/15/17 16:07 POC Glucose 141 H Phys Exam - Physical Examination HEENT: PERRLA, moist MMs Neck: no JVD, supple Respiratory: no wheezing, no rales Cardiovascular: RRR, no significant murmur Gastrointestinal: soft, non-tender, positive bowel sounds Musculoskeletal: no edema, pulses present Neurological: non-focal, moves all 4 limbs Psychiatric: A&O x 3 Dx/Plan (1) Temporal arteritis Code(s): M31.6 - OTHER GIANT CELL ARTERITIS Status: Suspected (2) Acute kidney failure Status: Acute Comment: resolving (3) Anemia, normocytic normochromic Code(s): D64.9 - ANEMIA, UNSPECIFIED Status: Chronic (4) Dementia Code(s): F03.90 - UNSPECIFIED DEMENTIA WITHOUT BEHAVIORAL DISTURBANCE Status: Chronic Qualifiers: Dementia type: unspecified type Dementia behavioral disturbance: without behavioral disturbance Qualified Code(s): F03.90 - Unspecified dementia without behavioral disturbance (5) Diabetes type 2, controlled Code(s): E11.9 - TYPE 2 DIABETES MELLITUS WITHOUT COMPLICATIONS Status: Chronic (6) Dyslipidemia Code(s): E78.5 - HYPERLIPIDEMIA, UNSPECIFIED Status: Chronic (7) Hypertension Code(s): I10 - ESSENTIAL (PRIMARY) HYPERTENSION Status: Chronic Qualifiers: Hypertension type: essential hypertension Qualified Code(s): I10 - Essential (primary) hypertension (8) Hypothyroidism Code(s): E03.9 - HYPOTHYROIDISM, UNSPECIFIED Status: Chronic Qualifiers: Hypothyroidism type: unspecified Qualified Code(s): E03.9 - Hypothyroidism , unspecified (9) Obesity (BMI 30.0-34.9) Code(s): E66.9 - OBESITY, UNSPECIFIED Status: Chronic - Plan hemostable -: neurologically stable -: tapering steroids -: dc pt home -: wbc 19 sec to steroids * .
[2017-02-16 16:14] LABS: ANCA Pattern <1:20 titer (Neg:<1:20); ANCA Total <1:20 titer (Neg:<1:20); Myeloperoxidase AutoAbs <9.0 U/mL (0.0-9.0); Proteinase-3 AutoAbs Less than 3.5 U/mL (0.0-3.5)
--- NOTE | 2017-02-17 01:12 | DIS ---
DATE OF ADMISSION: 02/13/2017 DATE OF DISCHARGE: 02/16/2017 DISCHARGE DISPOSITION: To home. PRIMARY DISCHARGE DIAGNOSES: Suspected temporal arteritis, resolving; acute kidney injury, resolved ; chronic anemia; dementia; diabetes mellitus type 2; dyslipidemia; hypertension; hypothyroidism; ob esity. PROCEDURES DONE DURING HOSPITALIZATION: Patient has had facial bones CT scan done, which showed no drainable fluid collection. There is mild soft tissue swelling surrounding the right periorbital re gion reflecting mild cellulitis. CT brain showed no acute intracranial abnormalities. CT of the ab domen and pelvis done showed no free air or bowel obstruction, no abscesses seen. There was diverti culosis without diverticulitis. There is incidental finding of left adrenal adenoma. Discharge H a nd H 10 and 30, sed rate was greater than 130. Discharge BUN and creatinine 21 and 1.34. Admitting BUN and creatinine was 16 and 1.6, CRP was 4.27. FELICIANO screen was negative. INPATIENT CONSULTATIONS: Dr. Galeano for Neurology, Dr. Diehl for Neurosurgery, Dr. Calderon for V ascular Surgery. DISCHARGE PLAN: Patient to follow up with primary care physician in [address] [facility]. DISCHARGE MEDICATIONS: Prednisone tapering dose starting at 40 mg as prescribed, metformin 1000 mg p.o. twice daily, Myrbetriq 25 mg p.o. daily, lisinopril 10 mg p.o. daily, levothyroxine 50 mcg p.o. daily, donepezil 5 mg p.o. at bedtime, atorvastatin 40 mg p.o. at bedtime. ALLERGIES: No known drug allergies. BRIEF COURSE DURING HOSPITALIZATION: Patient initially got admitted on the with complaints of headache in the right temporal area. She did not have any complaints of visual symptoms. In view o f this history, she was admitted to Stroke Unit for suspected right-sided temporal arteritis. She h as had consultation with Dr. Galeano for Neurology. The patient was placed on high dose steroids an d has had complete resolution of her headache. She has had consultation with Dr. Reji Calderon for possible biopsy. In view of patient's prior significant risk for anesthesia, no further surgery or biopsy were attempted as she was anyway getting better with steroids. In view of this, she needs to continue steroid taper for a period of 10 days. She needs to follow up with primary care physician in 1 week. Prior to discharge, she is ambulating and eating well. Neurologically and cognitively, she is intact. Please see a [id number] [facility].
== END 2017-02-16 12:35 | disposition home or self-care (01) | DRG 545 ==
LOC: ERS 18:58 → T4-B 02-13 02:27
PROVIDERS: ADMIT Internal Medicine; ATTEND Internal Medicine
DX: M31.6 Other giant cell arteritis (principal); G93.40 Encephalopathy, unspecified; N17.9 Acute kidney failure, unspecified; E11.9 Type 2 diabetes mellitus without complications; F03.90 Unspecified dementia, unspecified severity, without behavioral disturbance, psychotic disturbance, mood disturbance, and anxiety; D64.9 Anemia, unspecified; I10 Essential (primary) hypertension; E78.5 Hyperlipidemia, unspecified; E03.9 Hypothyroidism, unspecified; E66.9 Obesity, unspecified; E87.6 Hypokalemia; E83.42 Hypomagnesemia; Z68.32 Body mass index [BMI] 32.0-32.9, adult; K21.9 Gastro-esophageal reflux disease without esophagitis
CPT/HCPCS: 36415; 36416; 70450; 70487; 71010; 74176; 80048; 80053; 81001; 81003; 82140; 82553; 83036; 83735; 84100; 84484; 85025; 85652; 86021; 86038; 86140; 96365; 96374; 96375; A4216; J0360; J1720; J1940; J2270; J2405; J2930; J3475; J3480; J7050; J7506